=== PATIENT | female | born 1980 | race Asian ===

== ENCOUNTER 2021-03-08 05:20 | Emergency (ER) | payer OTHER ==
[~2021-03-08] VITALS: Ht 162.6 cm; Wt 49.9 kg
--- NOTE | 2021-03-08 05:21 | NUR ---
PT [facility]. TAKEN TO BED 7
--- NOTE | 2021-03-08 05:23 | NUR ---
Dr. Way examining patient.
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
[2021-03-08] MEDS ORDERED: ACETAMINOPHEN 325 MG TAB PO ONE (05:35)
--- NOTE | 2021-03-08 05:37 | NUR ---
[facility] AT BEDSIDE
[2021-03-08 06:05] VITALS: BP 109/78
--- NOTE | 2021-03-08 06:08 | NUR ---
Patient taken to CT via wheel chair.
[2021-03-08] MEDS ORDERED: ACET-10509 PO (06:56)
--- NOTE | 2021-03-08 07:09 | NUR ---
Report given to AGUSTIN Mayers and AGUSTIN Flores for transfer of care at this time.
[2021-03-08 07:13] VITALS: BP 109/78
--- NOTE | 2021-03-08 07:14 | NUR ---
Patient discharged with v/s stable. Written and verbal after care instructions given and explained. Patient alert, oriented and verbalized understanding of instructions. Ambulatory with steady gait. All questions addressed prior to discharge. ID band removed. Patient advised to follow up with PMD. Rx of acetaminophen 500 mg po qid prn for pain given. Patient educated on indication of medication including possible reaction and side effects. Opportunity to ask questions provided and answered.
== END 2021-03-08 07:14 | disposition home or self-care (01) ==
LOC: MED 05:20
DX: S09.90XA Unspecified injury of head, initial encounter (principal); M25.522 Pain in left elbow; M25.512 Pain in left shoulder; V98.8XXA Other specified transport accidents, initial encounter; Y93.89 Activity, other specified; Y92.89 Other specified places as the place of occurrence of the external cause; Y99.8 Other external cause status
CPT/HCPCS: 70450; 73030; 73080; 99284